=== PATIENT | male | born 2005 | race Caucasian/White ===

== ENCOUNTER 2025-02-03 04:01 | Emergency (ER) | payer OTHER ==
[2025-02-03 04:10] VITALS: BP 121/78; PULSE 88; RESP 18; TEMP 99; BMI 32.5
[2025-02-03] MEDS: DIPHTH,PERTUSS(ACELL),TET 0.5 ML DISP.SYRIN IM ONE (04:37)
[2025-02-03] MEDS ORDERED: AMOX TR/POT CLAV 875MG/125MG TABLETS (FP) PO ONE (06:04)
[2025-02-03] MEDS ORDERED: AMOX TR/POT CLAV 875MG/125MG TABLETS (FP) ONE (06:08)
[2025-02-03] MEDS: AMOX TR/POT CLAV 875MG/125MG TABLETS (FP) PO ONE (06:11)
== END 2025-02-03 06:11 | disposition home or self-care (01) ==
LOC: JER 04:01
PROC: 0HQFXZZ Repair Right Hand Skin, External Approach (ICD-10-PCS; principal; 2025-02-03)
PROC: 3E0234Z Introduction of Serum, Toxoid and Vaccine into Muscle, Percutaneous Approach (ICD-10-PCS; 2025-02-03)
DX: S61.411A Laceration without foreign body of right hand, initial encounter (principal); S61.216A Laceration without foreign body of right little finger without damage to nail, initial encounter; W25.XXXA Contact with sharp glass, initial encounter
CPT/HCPCS: 12002-25; 73130-TC-RT-FY; 90471; 90715; 99284-25

== ENCOUNTER 2025-02-15 12:27 | Emergency (ER) | payer OTHER ==
[2025-02-15 12:36] VITALS: BP 124/55; PULSE 81; RESP 16; TEMP 98.2; BMI 32.5
== END 2025-02-15 13:07 | disposition home or self-care (01) ==
LOC: JERFT 12:27 → JER 12:27 → JERFT 13:07
DX: Z48.02 Encounter for removal of sutures (principal)
CPT/HCPCS: 99281-25